=== PATIENT | male | born 1950 | race Caucasian/White ===

== ENCOUNTER 2016-11-24 10:35 | Day surgery (SDC) | payer MEDICARE ==
--- NOTE | 2016-11-18 15:14 | HP ---
PREOPERATIVE HISTORY AND PHYSICAL: DATE OF SURGERY/ADMISSION: 11/24/16 [facility] DATE OF OFFICE VISIT/ENCOUNTER: 11/18/16 ATTENDING SURGEON: Kim Irving MD * (DICTATED BY MANJIT SERRA) PROCEDURE: Right carpal tunnel release. CHIEF COMPLAINT: Bilateral hand numbness and tingling. HISTORY OF PRESENT ILLNESS: This is a 65-year-old male who complains of numbness and tingling in his bilateral hands that has been ongoing. He was referred to Dr. Irving by Dr. Dean. 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 The patient says he has not consumed alcohol in 6 years. His hands are equally bad, symptomatically. The patient is right handed. 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 His symptoms have been worsening over the past 1 to 2 years, and the patient is interested in pursuing surgical intervention at this time. He would like to proceed with a right carpal tunnel release. PAST MEDICAL HISTORY: 1. Alcoholism. 2. Carotid artery disease with 100% occlusion of the right carotid artery. 3. Hyperlipidemia. 4. Questionable history of malaria. PAST SURGICAL HISTORY: 1. Bilateral knee meniscectomies. 2. Right shoulder surgery. 3. Tonsillectomy. 4. Appendectomy. 5. Umbilical hernia repair. CURRENT MEDICATIONS: 1. Advil 200 mg p.r.n. 2. Cialis 20 mg p.r.n. ALLERGIES: No known drug allergies. FAMILY MEDICAL HISTORY: Cardiac disease and breast cancer. 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 He denies tobacco use, recreational drug use. He reports no current use of alcohol, although has a history of alcohol abuse. REVIEW OF SYSTEMS: General: Negative for fevers, chills, or night sweats. No known anesthesia problems. HEENT: Negative for headache, lightheadedness, or syncopal episodes. Integumentary: Negative for abrasions, lesions, or open wounds. Cardiothoracic: Negative for hypertension, chest pain, palpitations or edema. Pulmonary: Negative for shortness of breath with exertion, chronic cough, COPD. GI: Negative for nausea, vomiting, diarrhea, constipation, or GERD. : Negative for nocturia, urinary frequency, urgency, history of UTIs, or kidney problems. Musculoskeletal: Positive for current complaint. Negative for chronic or intermittent back pain or history of fractures. Neurological: Negative for history of seizure, stroke, or epilepsy. Endocrine : Negative for diabetes or thyroid issues. Hematologic: Negative for easy bruising, anemia, excessive bleeding, or history of DVT. Infectious Disease: Negative for history of MRSA, hepatitis C, or HIV. PHYSICAL EXAMINATION GENERAL: Well-developed, well-nourished 65-year-old male, in no acute distress. VITAL SIGNS: Height 6 feet 1/2 inch, weight 230 pounds, pulse rate 56, blood pressure 126/79. HEENT: Normocephalic, atraumatic. Pupils are equal, round, and reactive to light and accommodation. Extraocular movements are intact. NECK: Supple. No palpable lymph nodes. Throat is clear. PULMONARY: Lungs are clear to auscultation bilaterally. No wheezes, rales, or rhonchi. CARDIOTHORACIC: Regular rate and rhythm. S1, S2. No murmurs, rubs or gallops. No edema. ABDOMEN: Positive bowel sounds, soft, nontender. NEUROLOGICAL: Alert and oriented x3, cranial nerves II through XII are intact. MUSCULOSKELETAL: On exam of bilateral upper extremities, there is thenar wasting more pronounced on the left than on the right. He has weakness with some abduction bilaterally. He can fully flex and extend his fingers. He has slight decrease in sensation to light touch in the median nerve distribution, bilateral hands. He has a negative Tinel sign at the carpal tunnel bilaterally. DIAGNOSTIC STUDIES: EMG/nerve conduction studies show severe bilateral carpal tunnel syndrome. IMPRESSION: Bilateral carpal tunnel syndrome. PLAN: The patient is scheduled to undergo a right carpal tunnel release with Dr. Irving on 11/24/16. He will return to the office 10 to 14 days postop for followup and suture removal. A prescription for Ultracet was e-scribed to the patient's pharmacy for postoperative pain management. MANJTI SERRA [id number]/[facility] #: [id number] [facility]
[~2016-11-24 10:35] MED LIST: Buffered Lidocaine 0.9% SYRIN* 5 ML/SYR SYRINGE INTRADERM ONE; Dexamethasone IV* 4 MG/ML 1 ML (4 MG) IV SLOW PU ONE; Famotidine IV* 10 MG/ML 2 ML (20 mg) IV ONE
[2016-11-24] MEDS ORDERED: Famotidine IV* 10 MG/ML 2 ML (20 mg) ONE (10:39)
[2016-11-24] MEDS ORDERED: Dexamethasone IV* 4 MG/ML 1 ML (4 MG) ONE (10:39)
[2016-11-24] MEDS ORDERED: Propofol* 10 MG/ML 20 ML BTL IV PUSH ONE (12:07)
[2016-11-24] MEDS ORDERED: Ketorolac INJ* 30 MG/ML 1 ML VIAL ONE (12:07)
[2016-11-24] MEDS ORDERED: Ondansetron INJ* 2 MG/ML VIAL ONE (12:07)
[2016-11-24] MEDS ORDERED: Lidocaine 1% INJ* 10 MG/ML 30 ML SDV ONE (12:15)
[2016-11-24] MEDS ORDERED: traMADol TAB* 50 MG ONE (12:55)
[2016-11-24] MEDS ORDERED: Acetaminophen TAB* 325 MG ONE (12:56)
[2016-11-24 13:21] VITALS: BP 171/94
--- NOTE | 2016-11-24 22:28 | OP ---
DATE OF OPERATION: 11/24/16 [facility] DATE OF : 50 SURGEON: Kim Irving MD TAR POT MAN: MANJIT Peraza ANESTHESIOLOGIST: Reynaldo Duong MD ANESTHESIA: Local MAC. PRE-OP DIAGNOSIS: Right carpal tunnel syndrome. POST-OP DIAGNOSIS: Right carpal tunnel syndrome. OPERATIVE PROCEDURE: Right carpal tunnel release. INDICATIONS: Frederick is a 65-year-old man with numbness and tingling in the median nerve distribution of his right hand. He presents for right carpal tunnel release. ESTIMATED BLOOD LOSS: Zero. TOURNIQUET TIME: 5 minutes. DESCRIPTION OF PROCEDURE: The patient was brought to the operating room, was given a sedation anesthetic and a local infiltration of 10 cc of 1% plain lidocaine in the palm of his right hand. The skin of his right hand and forearm was prepped and draped in the usual sterile fashion. The hand and forearm were exsanguinated and the tourniquet elevated to 250 mmHg. A longitudinal incision was made in the palm in line with the ring finger. We dissected through the subcutaneous tissue down to the transverse carpal ligament. The ligament was divided sharply with the knife and then more proximally with the scissors. The nerve was dissected free from the surrounding tissue and there was an area of moderate compression at the mid portion of the ligament. The wound was irrigated and the skin edges were reapproximated with 4-0 nylon suture. The wound was dressed with Xeroform, 4x4 , Webril, and an Fredo wrap. The patient tolerated the procedure well and was brought to the recovery room in good condition. [id number]/[facility] #: [id number] [facility]
== END 2016-11-24 13:12 | disposition home or self-care (01) ==
LOC: OREAST 10:35
PROVIDERS: ATTEND Orthopaedic Surgery
DX: G56.01 Carpal tunnel syndrome, right upper limb (principal); I65.21 Occlusion and stenosis of right carotid artery
CPT/HCPCS: A9270-GY; J1100; J1885; J2001; J2405; J2704

== ENCOUNTER 2017-02-02 09:15 | Day surgery (SDC) | payer MEDICARE ==
--- NOTE | 2017-01-25 18:04 | HP ---
PREOPERATIVE HISTORY AND PHYSICAL: DATE OF SURGERY/ADMISSION: 02/02/17 [facility] DATE OF OFFICE VISIT/ENCOUNTER: 01/21/17 ATTENDING SURGEON: Kim Irving MD * (DICTATED BY MANJIT SERRA) PROCEDURE: Left wrist carpal tunnel release. CHIEF COMPLAINT: Numbness and tingling, left hand. HISTORY OF PRESENT ILLNESS: This is a 66-year-old male who complains of numbness and tingling in his left hand that has been ongoing. 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 The patient states he has not consumed alcohol in over 6 years. 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 His symptoms have been worsening over the past 1 to 2 years. He recently had a right carpal tunnel release in November [address] Irving and did very well with that. He would like to now proceed with a left carpal tunnel release. PAST MEDICAL HISTORY: 1. Alcoholism. 2. Carotid artery disease with 100% occlusion of the right carotid artery. 3. Hyperlipidemia. 4. Questionable history of malaria. PAST SURGICAL HISTORY: 1. Right carpal tunnel release. 2. Bilateral knee meniscectomies. 3. Right shoulder surgery. 4. Tonsillectomy. 5. Appendectomy. 6. Umbilical hernia repair. CURRENT MEDICATIONS: 1. Advil 200 mg p.r.n. 2. Cialis 20 mg p.r.n. ALLERGIES: No known drug allergies. FAMILY MEDICAL HISTORY: Cardiac disease and breast cancer. 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 He denies tobacco, recreational drug use. He reports no current use of alcohol, although he has a history of alcohol abuse. REVIEW OF SYSTEMS: General: Negative for fevers, chills, or night sweats. No known anesthesia problems. HEENT: Negative for headache, lightheadedness, or syncopal episodes. Integumentary: Negative for abrasions, lesions, or open wounds. Cardiothoracic: Negative for hypertension, chest pain, palpitations, or edema. Pulmonary: Negative for shortness of breath with exertion, chronic cough, COPD. GI: Negative for nausea, vomiting, diarrhea, constipation, or GERD. : Negative for nocturia, urinary frequency, urgency, history of UTIs, or kidney problems. Musculoskeletal: Positive for current complaint. Negative for chronic or intermittent back pain. Neurologic: Negative for history of seizure, stroke, or epilepsy. Endocrine: Negative for diabetes or thyroid issues. Hematologic: Negative for easy bruising, anemia, excessive bleeding, or history of DVT. Infectious Disease: Negative for history of MRSA, hepatitis C, or HIV. PHYSICAL EXAMINATION GENERAL: A well-developed, well-nourished 66-year-old male in no acute distress. VITAL SIGNS: Height 6 feet one-half inch, weight 229 pounds, pulse rate 60, blood pressure 140/90. HEENT: Normocephalic, atraumatic. Pupils are equal, round, and reactive to light and accommodation. Extraocular movements are intact. Throat is clear. NECK: Supple. No palpable lymph nodes. PULMONARY: Lungs are clear to auscultation bilaterally. No wheezes, rales, or rhonchi. CARDIOVASCULAR: Regular rate and rhythm. S1, S2. No murmurs, rubs, or gallops. No edema. ABDOMEN: Positive bowel sounds, soft, nontender. NEUROLOGICAL: Alert and oriented x3. Cranial nerves II through XII are intact. Sensation is intact to light touch. MUSCULOSKELETAL: On exam of the left upper extremity, he has visible thenar wasting and weakness with thumb abduction. He has full flexion and extension of his fingers. There is a slight decrease in sensation to light touch in the median nerve distribution of the left hand. He has a negative Tinel sign of the carpal tunnel. DIAGNOSTIC STUDIES: EMG nerve conduction study showed severe left carpal tunnel syndrome. IMPRESSION: Left carpal tunnel syndrome. PLAN: The patient is scheduled to undergo a left wrist carpal tunnel release with Dr. Irving on 02/02/17. He will return to the office in 10 to 14 days postop for f ollowup and suture removal. The patient has Ultracet already at home when he had his right carpal tunnel release and he will plan on using that should he needed for postoperative pain management. MANJIT SERRA [id number]/[facility] #: [id number] [facility]ENTERMadel[facility]
[~2017-02-02 09:15] MED LIST changes: -Dexamethasone IV* 4 MG/ML 1 ML (4 MG) IV SLOW PU ONE; -Famotidine IV* 10 MG/ML 2 ML (20 mg) IV ONE
[2017-02-02] MEDS ORDERED: fentaNYL* 50 MCG/ML 2 ML VIAL (100 MCG VIAL) ONE (10:23)
[2017-02-02] MEDS ORDERED: Midazolam* 1 MG/ML 2 ML VIAL (2 MG) ONE (10:23)
[2017-02-02] MEDS ORDERED: Lidocaine 1% INJ* 10 MG/ML 30 ML SDV ONE (10:23)
[2017-02-02 11:11] VITALS: BP 110/71
--- NOTE | 2017-02-03 02:17 | OP ---
CC: Dr. Todd OPERATIVE REPORT: DATE OF OPERATION: 02/02/17 - [facility] DATE OF : 50 SURGEON: Kim todd MD FATBACK TRIMMER: MANJIT Peraza ANESTHESIOLOGIST: Pedro Lindo MD ANESTHESIA: Local MAC. PRE-OP DIAGNOSIS: Left carpal tunnel syndrome. POST-OP DIAGNOSIS: Left carpal tunnel syndrome. OPERATIVE PROCEDURE: Left carpal tunnel release. ESTIMATED BLOOD LOSS: Zero. TOURNIQUET TIME: 5 minutes. INDICATIONS FOR PROCEDURE: Frederick is a 66-year-old man with numbness and tingling in the median nerve distribution of his left hand. He presents for left carpal tunnel release. DESCRIPTION OF PROCEDURE: The patient was brought to the operating room, was given a sedation anesthetic and a local infiltration of 10 cc of 1% plain lidocaine in the palm of his left hand. The skin of his left hand and forearm was prepped and draped in the usual sterile fashion. The hand and forearm were exsanguinated and the tourniquet elevated to 250 mmHg. A longitudinal incision was made in the palm in line with the ring finger. We dissected bluntly through the subcutaneous tissue down to the transverse carpal ligament. The ligament was divided sharply with a knife and then more proximally with the scissors. The nerve was dissected free from the surrounding tissue and there was an area of moderate compression at the mid portion of the ligament. The wound was irrigated and the skin edges reapproximated with 4-0 nylon suture. The wound was dressed with Xeroform, 4x4, Webril, and an Fredo wrap. The patient tolerated the procedure well and was brought to the recovery room in good condition. [id number]/[facility] #: [id number] [facility]
== END 2017-02-02 11:18 | disposition home or self-care (01) ==
LOC: OREAST 09:15
PROVIDERS: ATTEND Orthopaedic Surgery
DX: G56.02 Carpal tunnel syndrome, left upper limb (principal); I65.21 Occlusion and stenosis of right carotid artery; E78.5 Hyperlipidemia, unspecified; Z87.891 Personal history of nicotine dependence; M10.9 Gout, unspecified; Z68.30 Body mass index [BMI] 30.0-30.9, adult
CPT/HCPCS: J2001; J2250; J3010